=== PATIENT | male | born 1965 | race Caucasian/White ===

== ENCOUNTER 2020-09-22 07:44 | Observation (INO) | payer OTHER, SELFPAY ==
[2020-09-22] VITALS (37 sets, daily range): BP systolic 115–158; BP diastolic 69–93; PULSE 65–77; RESP 13–24; TEMP 35.6–36.9; O2SAT 94–99
--- NOTE | 2020-09-22 07:45 | RT.EKG_ITS ---
APPROVED REPORT Exam: Resting ECG Reason for Exam: dizzy Patient Location: E HR:68 bpm ECG Measurements Heart Rate 68 AXIS [place] 175 P 50 QRSd 101 QRS 27 QT 363 T 22 QTc 385 Conclusion Sinus rhythm...normal P axis, V-rate 60- 99
--- NOTE | 2020-09-22 08:15 | DI.CT_ITS ---
Exam(s) CT CHEST PE CTA EXAM: CT CHEST PE CTA CLINICAL HISTORY: sob, diaphoresis, cp, h/o dvt. TECHNIQUE: Imaging Protocol: Axial CT angiography was performed with multi-slice acquisition and mu lti-planar and/or 3D reconstructions. CONTRAST MATERIAL: Intravenous: Omnipaque 350 Contrast volume:100 mL COMPARISON: No exams were available for comparison FINDINGS: Tracheobronchial tree: Patent where visualized. Pulmonary parenchyma: No focal consolidation. There is a calcified granuloma in the superior segment of the right lower lobe. There is a 0.8 cm soft tissue nodule in the superior segment of the right upper lobe. (Series 6, image 196). There does appear to be a single calcification centrally. There is a 0.5 cm noncalcified pulmonary nodule in the superior segment of the right lower lobe. (Series 6, image 196). There is a 0.7 cm noncalcified pulmonary nodule in the right lower lobe. (Series 6, image 260). It lies adjacent to the fissure. No other pulmonary nodules are appreciated. No laura ectural distortion. Pulmonary Arteries: No evidence of filling defect to suggest pulmonary emboli. Mediastinum and Elzbieta: No dominant adenopathy or fluid collection. There is a small hiatal hernia. Th ere is a 2.1 x 1.6 right hilar lymph node. Visualized thyroid gland: Unremarkable. Pleura: No effusion or pneumothorax. Heart: The heart is not dilated. Mild coronary artery calcification. No pericardial effusion. Aorta: Thoracic aorta non-dilated. Mild coronary artery calcification. No evidence of an aortic diss ection. Upper abdomen: Diffuse fatty infiltration of the liver. Soft tissues: Unremarkable. Bones: Degenerative changes in the thoracic spine. IMPRESSION: 1. No evidence of pulmonary embolism, thoracic aortic dissection or aneurysm. 2. Pulmonary nodules and mildly enlarged right hilar lymph node. Metastatic disease cannot be exclud ed given the patient's history of melanoma. However, nonneoplastic lesions or infectious or inflamma tory processes cannot be excluded. PET-CT scan may be considered for further evaluation. 3. Results of this exam have been verbally communicated with provider. RADIATION DOSE DELIVERED: 635.58mGy.cm Total DLP DATA REPOSITORY: All CT scans at this facility are submitted to the National Radiology Data Registry (NRDR) Dose Index Registry (DIR) with the [employer] (A[employer]). RADIATION OPTIMIZATION: All CT scans at this facility use at least one of these dose optimization te chniques: automated exposure control; mA and/or kV adjustment per patient size (includes targeted exa ms where dose is matched to clinical indication); or iterative reconstruction.
[2020-09-22 08:19] LABS: Abs Immature Grans 0.04 10^3/uL (0.0-0.06); Absolute Basophil Count 0.04 10^3/uL (0.0-0.2); Absolute Monocyte Count 0.77 10^3/uL (0.1-0.8); Absolute Neutrophil Count 4.31 10^3/uL (1.2-6.7); Basophils % 0.5; Eosinophils % 3.7; HCT 46.4 % (40.0-50.0); Immature Grans % 0.5; Lymphocytes % 32.3; MCH 28.7 pg (27.0-33.0); MCHC 32.3 % (32.0-36.0); MCV 88.9 fL (80-95); MPV 9.9 fL (8.0-11.0); Monocytes % 9.6; Neutrophils % 53.4; Nucleated RBC 0 %; Platelet Count 251 10^3/uL (130-400); RBC 5.22 10^6/uL (4.36-5.78); RDW 12.1 % (11.8-14.1); RDW-SD 39.8 fL; WBC 8.06 10^3/uL (4.4-10.8)
--- NOTE | 2020-09-22 08:30 | ED.GENADUL_ITS ---
Discharge Plan Disposition Patient Disposition: [facility] INPATIENT Condition: Serious Discharge Details Chief Complaint: Chest Pain Clinical Impression: Dizziness, Palpitations, Chest pain Primary Care Provider: Lorelei,Local ED Provider: Khoi Bills Home Meds and New Rx's Prescriptions: No Action metformin 500 mg Tablet 500 mg PO BID RF: 0 lisinopril 20 mg Tablet 20 mg PO DAILY RF: 0 acetaminophen 500 mg Tablet 500 mg PO DAILY PRNRF: 0 methocarbamol 750 mg Tablet 750 mg PO BID RF: 0 aspirin 81 mg Tablet,Chewable 81 mg PO DAILY RF: 0 hydrochlorothiazide 25 mg Tablet 25 mg PO DAILY RF: 0 sulindac 200 mg Tablet 200 mg PO DAILY RF: 0 docosahexaenoic acid-epa Capsule 1 cap PO DAILY RF: 0 rosuvastatin 20 mg Tablet 20 mg PO HS RF: 0 Medical Decision Making 839?- 55-year-old male with history of A. fib status post cardiac ablation remotely, also with chronic lymphedema right lower extremity and venous thrombus right lower extremity that was initially treated with anticoagulation, no longer anticoagulated, here with palpitations with associated chest discomfort, shortness of breath, diaphoresis and dizziness since waking this morning. Patient is hemodynamically stable. Saturating well in no respiratory distress. EKG was reviewed and interpreted by me: Sinus rhythm 68 bpm, no STEMI, normal axis, nondiagnostic. I reviewed and interpreted cardiac catheterization technician while in the room with the patient and patient is persistently in a normal sinus rhythm with heart rate in the 70s. Given recent history of venous thrombus, consider acute life-threatening pulmonary embolism. Plan to obtain CT of the chest. Patient does have lower extremity edema and dyspnea on exertion. Consider congestive heart failure. I will check a BNP. Consider ACS. --CT interpreted by radiology as no pulmonary embolism, no dissection, incidentally noted nodules and hilar lymphadenopathy --this will require outpatient follow-up. Labs reviewed and nondiagnostic. Initial troponin negative. History from this morning is concerning for potential arrhythmia. Plan to admit for rule out ACS and cardiac monitoring. I called and spoke with the hospitalist, Dr. Wolf, discussed ED presentation and course. He will admit the patient. Bridging orders placed as requested. Lab Data Lab results reviewed: Yes I reviewed the patient's lab results. Labs: Laboratory Tests Range/Units 09/22/20 09/22/20 09/22/20 08:01 08:01 08:01 WBC (4.4-10.8) 10^3/uL 8.06 RBC (4.36-5.78) 10^6/uL 5.22 Hgb (13.5-17.5) g/dL 15.0 Hct (40.0-50.0) % 46.4 MCV (80-95) fL 88.9 MCH (27.0-33.0) pg 28.7 MCHC (32.0-36.0) % 32.3 RDW (11.8-14.1) % 12.1 Plt Count (130-400) 10^3/uL 251 MPV (8.0-11.0) fL 9.9 Immature Gran % 0.5 Neutrophils % 53.4 Lymphocytes % 32.3 Monocytes % 9.6 Eosinophils % 3.7 Basophils % 0.5 Nucleated RBC % % 0 Absolute Neutrophils (1.2-6.7) 10^3/uL 4.31 Absolute Lymphocytes (1.2-3.4) 10^3/uL 2.60 Absolute Monocytes (0.1-0.8) 10^3/uL 0.77 Absolute Eosinophils (0.0-0.7) 10^3/uL 0.30 Absolute Basophils (0.0-0.2) 10^3/uL 0.04 D-Dimer (<500) ng/mlFEU 332 Sodium (136-145) mmol/L 139 Potassium (3.5-5.1) mmol/L 3.9 Chloride (98-107) mmol/L 102 Carbon Dioxide (21.0-32.0) mmol/L 29.2 Anion Gap (3-11) mmol/L 7.8 BUN (7-18) mg/dL 21 H Creatinine (0.70-1.30) mg/dL 1.0 Estimated GFR/1.73 m2 (mL/min/1.73m2) >= 60.00 Glucose (74-106) mg/dL 114 H Calcium (8.5-10.1) mg/dL 9.0 Total Bilirubin (0.2-1.0) mg/dL 0.4 AST (15-37) U/L 28 ALT (16-63) U/L 60 Alkaline Phosphatase (46-116) U/L 60 Troponin I (<0.06) ng/mL < 0.05 NT-Pro-B Natriuret Pep (<300) pg/mL Total Protein (6.4-8.2) g/dL 7.8 Albumin (3.4-5.0) g/dL 4.3 TSH (0.36-3.74) uIU/mL Range/Units 09/22/20 08:01 WBC (4.4-10.8) 10^3/uL RBC (4.36-5.78) 10^6/uL Hgb (13.5-17.5) g/dL Hct (40.0-50.0) % MCV (80-95) fL MCH (27.0-33.0) pg MCHC (32.0-36.0) % RDW (11.8-14.1) % Plt Count (130-400) 10^3/uL MPV (8.0-11.0) fL Immature Gran % Neutrophils % Lymphocytes % Monocytes % Eosinophils % Basophils % Nucleated RBC % % Absolute Neutrophils (1.2-6.7) 10^3/uL Absolute Lymphocytes (1.2-3.4) 10^3/uL Absolute Monocytes (0.1-0.8) 10^3/uL Absolute Eosinophils (0.0-0.7) 10^3/uL Absolute Basophils (0.0-0.2) 10^3/uL D-Dimer (<500) ng/mlFEU Sodium (136-145) mmol/L Potassium (3.5-5.1) mmol/L Chloride (98-107) mmol/L Carbon Dioxide (21.0-32.0) mmol/L Anion Gap (3-11) mmol/L BUN (7-18) mg/dL Creatinine (0.70-1.30) mg/dL Estimated GFR/1.73 m2 (mL/min/1.73m2) Glucose (74-106) mg/dL Calcium (8.5-10.1) mg/dL Total Bilirubin (0.2-1.0) mg/dL AST (15-37) U/L ALT (16-63) U/L Alkaline Phosphatase (46-116) U/L Troponin I (<0.06) ng/mL NT-Pro-B Natriuret Pep (<300) pg/mL 25 Total Protein (6.4-8.2) g/dL Albumin (3.4-5.0) g/dL TSH (0.36-3.74) uIU/mL 3.44 HPI General Mode of arrival: ambulatory . Date/Time Provider Initiated Documentation: 09/22/20 08:09 . Limitations to Documentation: no limitations . Information obtained by: patient . HPI Narrative: 55-year-old gentleman with history of A. fib status post ablation 5 to 7 years ago, melanoma right lower extremity now status post removal and lymph node dissection right groin, chronic lymphedema right lower extremity, venous thrombus right lower extremity, no longer on anticoagulation, here with chief complaint of heart racing. Patient notes he woke up this morning around 430 feeling palpitations. Symptoms were initially moderate. They persisted through the morning and were severe while at work. He had associated shortness of breath, mild chest discomfort, diaphoresis and felt dizzy. He continues to have some mild sensation of palpitation and shortness of breath at this time. He has no chest pain at this time. Patient does note chronic lymphedema right lower extremity status post lymph node dissection as part of his treatment for metastatic melanoma and did subsequently have superficial thrombus and questionable DVT this past winter. Patient does note that over the past month he has had increased weight gain and has had some dyspnea on exertion. Related Data Home Medications Medication Instructions Recorded Confirmed acetaminophen 500 mg PO DAILY PRN 09/22/20 09/22/20 aspirin 81 mg PO DAILY 09/22/20 09/22/20 docosahexaenoic acid-epa 1 cap PO DAILY 09/22/20 09/22/20 hydrochlorothiazide 25 mg PO DAILY 09/22/20 09/22/20 lisinopril 20 mg PO DAILY 09/22/20 09/22/20 metformin 500 mg PO BID 09/22/20 09/22/20 methocarbamol 750 mg PO BID 09/22/20 09/22/20 rosuvastatin 20 mg PO HS 09/22/20 09/22/20 sulindac 200 mg PO DAILY 09/22/20 09/22/20 Allergies Allergy/AdvReac Type Severity Reaction Status Date / Time erythromycin base AdvReac Nausea Unverified 09/22/20 07:50 gabapentin AdvReac Other (See Unverified 09/22/20 07:50 Comment) simvastatin AdvReac Hives Unverified 09/22/20 07:50 General Stated Complaint: Chest Pain DAYNE: 2 Review of Systems All systems reviewed & are unremarkable except as noted in HPI and below Constitutional Constitutional: Denies fever(s) Cardiovascular Cardiovascular: Reports as per HPI, Reports chest pain, Reports leg edema (Chronic unchanged right lower extremity) and Reports dyspnea Respiratory Respiratory: Reports as per HPI and Reports dyspnea PFSH Medical History (Updated 09/22/20 @ 10:57 by Khoi Bills MD) Atrial fibrillation Melanoma Surgical History (Updated 09/22/20 @ 08:37 by Khoi Bills MD) H/O cardiac radiofrequency ablation Social History Smoking/Tobacco Use Status: Never Smoking risk assessment performed?: Yes Alcohol Intake: never Drug use: Never Substance use type: does not use Do you feel safe at home: Yes Do you feel safe in your relationship?: Yes Exam Const General: cooperative and no acute distress HENMT Head: normocephalic and atraumatic Mouth: moist mucous membranes Eyes Conjunctivae: normal conjunctivae Sclera: normal sclerae EOM: EOM intact bilaterally Neck Neck: trachea midline Resp Auscultation: clear to auscultation bilaterally, no rales, no rhonchi and no wheezes Cardio Jugular venous pressure: no JVD Rate: regular rate and not tachycardic Rhythm: regular rhythm GI Palpation: soft, not firm, no guarding, no masses, not rigid and nontender Skin General skin exam: no rashes or lesions noted Neuro General: patient alert, patient awake, patient oriented x3 and tone normal Extrem General: no calf tenderness and edema Laterality: right (Swelling of leg) Psych Appearance: grossly normal Mental Status: mental status grossly normal Speech and Movement: speech and movement normal Course Vital Signs Vital signs: Vital Signs Temperature 36.4 C L 09/22/20 07:47 Pulse 70 09/22/20 07:47 Respiratory Rate 20 09/22/20 07:47 Blood Pressure 158/93 H 09/22/20 07:47 Pulse Oximetry 98 09/22/20 07:47 Temperature 36.4 C L 09/22/20 07:47 Temperature Source Skin 09/22/20 07:47 Pulse 70 09/22/20 08:15 Pulse 70 09/22/20 08:20 Respiratory Rate 17 09/22/20 08:20 Respiratory Effort Non-Labored 09/22/20 07:51 Respiratory Depth Normal 09/22/20 07:51 Respiratory Pattern Normal 09/22/20 07:51 Blood Pressure 155/88 H 09/22/20 08:15 Blood Pressure Mean 104 09/22/20 08:15 Blood Pressure Position Sitting 09/22/20 07:47 Pulse Oximetry 98 09/22/20 08:20 Oxygen Delivery Method Room Air 09/22/20 07:47 Oxygen Flow Rate 0 09/22/20 07:47 Pain Level 5 09/22/20 07:51 Lab/Test Results Lab/Test Results: Laboratory Tests Range/Units 09/22/20 08:01 WBC (4.4-10.8) 10^3/uL 8.06 RBC (4.36-5.78) 10^6/uL 5.22 Hgb (13.5-17.5) g/dL 15.0 Hct (40.0-50.0) % 46.4 MCV (80-95) fL 88.9 MCH (27.0-33.0) pg 28.7 MCHC (32.0-36.0) % 32.3 RDW (11.8-14.1) % 12.1 Plt Count (130-400) 10^3/uL 251 MPV (8.0-11.0) fL 9.9 Immature Gran % 0.5 Neutrophils % 53.4 Lymphocytes % 32.3 Monocytes % 9.6 Eosinophils % 3.7 Basophils % 0.5 Nucleated RBC % % 0 Absolute Neutrophils (1.2-6.7) 10^3/uL 4.31 Absolute Lymphocytes (1.2-3.4) 10^3/uL 2.60 Absolute Monocytes (0.1-0.8) 10^3/uL 0.77 Absolute Eosinophils (0.0-0.7) 10^3/uL 0.30 Absolute Basophils (0.0-0.2) 10^3/uL 0.04
[2020-09-22 08:35] LABS: ALT 60 U/L (16-63); AST 28 U/L (15-37); Albumin 4.3 g/dL (3.4-5.0); Alkaline Phosphatase 60 U/L (46-116); Anion Gap 7.8 mmol/L (3-11); BUN 21 mg/dL (7-18); Bilirubin, Total 0.4 mg/dL (0.2-1.0); CO2 29.2 mmol/L (21.0-32.0); Chloride 102 mmol/L (98-107); Glucose 114 mg/dL (74-106); Potassium 3.9 mmol/L (3.5-5.1); Sodium 139 mmol/L (136-145); Total Protein 7.8 g/dL (6.4-8.2)
[2020-09-22 08:36] LABS: Troponin I < 0.05 ng/mL (<0.06)
[2020-09-22] MEDS: Omnipaque 350 MG/ML 100 ML BTL IV (08:45)
[2020-09-22] MEDS: Normal Saline - Diluent 50 ML VIAL IV (08:46)
[2020-09-22 08:52] LABS: D-Dimer 332 ng/mlFEU (<500)
[2020-09-22 08:55] LABS: NT-proBNP 25 pg/mL (<300); TSH (W/Ref FT4) 3.44 uIU/mL (0.36-3.74)
--- NOTE | 2020-09-22 10:51 | W.PM.HP.N ---
Date of service: 09/22/20 Time of Service: 10:51 Assessment and Plan Assessment and plan (1) Chest pain: Status: Acute Assessment and plan: referred to observation. trop x2 sets negative, will continue to trend continue asa anticipate discharge tomorrow with no services. outpatient cardiac evaluation. (2) Atrial fibrillation: Status: Inactive Assessment and plan: s/p ablation. in NSR. on telemetry (3) Diabetes mellitus type 2, controlled: Status: Acute Assessment and plan: reports last hemoglobin A1C was 6.2 which was up from 5.7 hold metformin 48 hours d/t contrast diabetic diet with sliding scale ac/hs History of Present Illness History of Present Illness Chief Complaint: chest pain Narrative: This is a 55-year-old gentleman with history of A. fib status post ablation 5 to 7 years ago, melanoma right lower extremity now status post removal and lymph node dissection right groin, chronic lymphedema right lower extremity, venous thrombus right lower extremity, no longer on anticoagulation, presented to the ED with chief complaint of heart racing. Patient notes he woke up this morning around 430 feeling palpitations. Review of Systems All systems reviewed & are unremarkable except as noted in HPI and below Cardiovascular Cardiovascular: Reports chest pain, Reports diaphoresis and Reports dyspnea Respiratory Respiratory: Reports dyspnea Gastrointestinal Gastrointestinal: Reports nausea PFSH Medical History (Updated 09/22/20 @ 16:57 by Elma Lundy NP) Atrial fibrillation Melanoma Surgical History (Updated 09/22/20 @ 08:37 by Khoi Bills MD) H/O cardiac radiofrequency ablation Social History Smoking/Tobacco Use Status: Never Smoking risk assessment performed?: Yes Alcohol Intake: never Drug use: Never Substance use type: does not use Do you feel safe at home: Yes Do you feel safe in your relationship?: Yes Meds Allergies and Home Medications Allergies Allergy/AdvReac Type Severity Reaction Status Date / Time erythromycin base AdvReac Nausea Unverified 09/22/20 07:50 gabapentin AdvReac Other (See Unverified 09/22/20 07:50 Comment) simvastatin AdvReac Hives Unverified 09/22/20 07:50 Home Medications Medication Instructions Recorded Confirmed Type acetaminophen 500 mg PO DAILY PRN 09/22/20 09/22/20 History aspirin 81 mg PO DAILY 09/22/20 09/22/20 History docosahexaenoic acid-epa 1 cap PO DAILY 09/22/20 09/22/20 History hydrochlorothiazide 25 mg PO DAILY 09/22/20 09/22/20 History lisinopril 20 mg PO DAILY 09/22/20 09/22/20 History metformin 500 mg PO BID 09/22/20 09/22/20 History methocarbamol 750 mg PO BID 09/22/20 09/22/20 History rosuvastatin 20 mg PO HS 09/22/20 09/22/20 History sulindac 200 mg PO DAILY 09/22/20 09/22/20 History Exam Const General: cooperative and no acute distress HENMT Head: normocephalic and atraumatic Mouth: moist mucous membranes Eyes Conjunctivae: normal conjunctivae Sclera: normal sclerae EOM: EOM intact bilaterally Neck Neck: trachea midline Resp Auscultation: clear to auscultation bilaterally, no rales, no rhonchi and no wheezes Cardio Rate: regular rate Rhythm: regular rhythm GI Palpation: soft, not firm, no guarding, no masses, not rigid and nontender Skin General skin exam: no rashes or lesions noted Neuro General: patient alert, patient awake, patient oriented x3 and tone normal Extrem General: no calf tenderness and edema Laterality: right (Swelling of leg) Psych Appearance: grossly normal Mental Status: mental status grossly normal Speech and Movement: speech and movement normal Results Labs Result diagrams: 09/22/20 08:01 09/22/20 08:01 Labs: Laboratory Results - last 24 hr 09/22/20 09/22/20 09/22/20 08:01 08:01 08:01 WBC 8.06 RBC 5.22 Hgb 15.0 Hct 46.4 MCV 88.9 MCH 28.7 MCHC 32.3 RDW 12.1 Plt Count 251 MPV 9.9 Immature Gran % 0.5 Neutrophils % 53.4 Lymphocytes % 32.3 Monocytes % 9.6 Eosinophils % 3.7 Basophils % 0.5 Nucleated RBC % 0 Absolute Neutrophils 4.31 Absolute Lymphocytes 2.60 Absolute Monocytes 0.77 Absolute Eosinophils 0.30 Absolute Basophils 0.04 D-Dimer 332 Sodium 139 Potassium 3.9 Chloride 102 Carbon Dioxide 29.2 Anion Gap 7.8 BUN 21 H Creatinine 1.0 Estimated GFR/1.73 m2 >= 60.00 Glucose 114 H Calcium 9.0 Total Bilirubin 0.4 AST 28 ALT 60 Alkaline Phosphatase 60 Troponin I < 0.05 NT-Pro-B Natriuret Pep Total Protein 7.8 Albumin 4.3 TSH 09/22/20 08:01 WBC RBC Hgb Hct MCV MCH MCHC RDW Plt Count MPV Immature Gran % Neutrophils % Lymphocytes % Monocytes % Eosinophils % Basophils % Nucleated RBC % Absolute Neutrophils Absolute Lymphocytes Absolute Monocytes Absolute Eosinophils Absolute Basophils D-Dimer Sodium Potassium Chloride Carbon Dioxide Anion Gap BUN Creatinine Estimated GFR/1.73 m2 Glucose Calcium Total Bilirubin AST ALT Alkaline Phosphatase Troponin I NT-Pro-B Natriuret Pep 25 Total Protein Albumin TSH 3.44 Last Vital Signs Temp 36.4 C L 09/22/20 07:47 Pulse 67 09/22/20 10:01 Resp 23 09/22/20 10:30 BP 146/79 H 09/22/20 10:01 Pulse Ox 96 09/22/20 10:30
[2020-09-22 11:00] LABS: Source Nasal/Nares
[2020-09-22 13:39] LABS: COVID-19 PCR Negative (Negative)
[2020-09-22 14:28] LABS: Troponin I < 0.05 ng/mL (<0.06)
[2020-09-22 17:26] LABS: Troponin I < 0.05 ng/mL (<0.06)
[2020-09-22] MEDS: Insulin Aspart 300 UNITS/3 ML PEN SC (18:14)
[2020-09-22 18:41] LABS: Hemoglobin A1C 6.2 % (<5.7)
[2020-09-22] MEDS: Methocarbamol 750 MG TAB PO (19:54)
[2020-09-22] MEDS: ROSUVASTATIN 20 MG TAB PO (19:54)
[2020-09-23 00:45] VITALS: PULSE 62
[2020-09-23 01:12] VITALS: BP 109/76; PULSE 70; RESP 17; TEMP 36.3; O2SAT 95
[2020-09-23 03:05] VITALS: BP 140/68; PULSE 67; RESP 16; TEMP 36.4; O2SAT 97
[2020-09-23 07:00] VITALS: PULSE 77
[2020-09-23 07:04] VITALS: BP 130/67; PULSE 63; RESP 16; TEMP 36.6; O2SAT 94
[2020-09-23 07:20] LABS: Abs Immature Grans 0.04 10^3/uL (0.0-0.06); Absolute Basophil Count 0.06 10^3/uL (0.0-0.2); Absolute Eosinophil Count 0.27 10^3/uL (0.0-0.7); Absolute Monocyte Count 0.78 10^3/uL (0.1-0.8); Absolute Neutrophil Count 4.46 10^3/uL (1.2-6.7); Basophils % 0.8; Eosinophils % 3.5; HGB 15.2 g/dL (13.5-17.5); Immature Grans % 0.5; Lymphocytes % 28.2; MCH 29.1 pg (27.0-33.0); MPV 9.8 fL (8.0-11.0); Nucleated RBC 0 %; Platelet Count 233 10^3/uL (130-400); RBC 5.23 10^6/uL (4.36-5.78); RDW 12.2 % (11.8-14.1); RDW-SD 39.5 fL; WBC 7.81 10^3/uL (4.4-10.8)
[2020-09-23 07:38] LABS: Anion Gap 7.2 mmol/L (3-11); BUN 17 mg/dL (7-18); CO2 28.8 mmol/L (21.0-32.0); Calcium 9.1 mg/dL (8.5-10.1); Chloride 101 mmol/L (98-107); Glucose 129 mg/dL (74-106); Potassium 4.2 mmol/L (3.5-5.1); Sodium 137 mmol/L (136-145)
[2020-09-23 07:39] LABS: Troponin I < 0.05 ng/mL (<0.06)
[2020-09-23] MEDS: Acetaminophen 500 MG TAB PO (08:33)
[2020-09-23] MEDS: Lisinopril 20 MG TAB PO (08:34)
[2020-09-23] MEDS: hydroCHLOROthiazide 25 MG TAB PO (08:34)
[2020-09-23] MEDS: Methocarbamol 750 MG TAB PO (08:34)
[2020-09-23] MEDS: Aspirin 81 MG CHEW PO (08:34)
[2020-09-23 11:45] VITALS: BP 143/90; PULSE 64; RESP 18; TEMP 36.1; O2SAT 96
--- NOTE | 2020-09-23 11:49 | DSE_ITS ---
Date of service: 09/23/20 Time of Service: 11:53 DS: Diagnosis Discharge Diagnosis (1) Chest pain: Status: Acute (2) Atrial fibrillation: Status: Inactive (3) Diabetes mellitus type 2, controlled: Status: Acute Discharge Plan Disposition Patient Disposition: HOME Condition: Stable Discharge Details Reason For Visit: Chest pain Admit Date/Time: 09/22/20 10:09 Admit Provider: Javon Wolf Attending Provider: Javon Wolf [facility] Hospital Course: This is a 55-year-old male with history of A. fib status post ablation 5 to 7 years ago, melanoma right lower extremity now status post removal and lymph node dissection right groin, chronic lymphedema right lower extremity, venous thrombus right lower extremity, no longer on anticoagulation, who presented to the ED with chief complaint of heart racing and chest pressure. He states he developed the symptoms and they seemed to worsen over several hours so presented here. His work up in the ED showed no acute changes on EKG and a negative troponin. He was in sinus rhythm, his symptoms resolved. His CT scan was negative for PE. He was referred to observation and remained hemodynamically stable, troponins remained negative x3 with the last set this morning, 24 hours post onset of symptoms. He remained in NSR on telemetry. On CT scan that was ordered to r/o PE we found pulmonary nodules and mildly enlarged right hilar lymph node. Metastatic disease cannot be excluded given the patient's history of melanoma. However, nonneoplastic lesions or infectious or inflammatory processes cannot be excluded. PET-CT scan may be considered for further evaluation. He should discuss with his oncologist to arrange follow up. He is being discharged to home with no services. he was advised to resume his usual medication. He will follow up outpatient with cardiology, oncology and pcp. discussed with DR Edmonds Home Meds and New Rx's Prescriptions: Continued metformin 500 mg Tablet 500 mg PO BID RF: 0 lisinopril 20 mg Tablet 20 mg PO DAILY RF: 0 acetaminophen 500 mg Tablet 500 mg PO DAILY PRNRF: 0 methocarbamol 750 mg Tablet 750 mg PO BID RF: 0 aspirin 81 mg Tablet,Chewable 81 mg PO DAILY RF: 0 hydrochlorothiazide 25 mg Tablet 25 mg PO DAILY RF: 0 sulindac 200 mg Tablet 200 mg PO DAILY RF: 0 docosahexaenoic acid-epa Capsule 1 cap PO DAILY RF: 0 rosuvastatin 20 mg Tablet 20 mg PO HS RF: 0 Discharge Instructions Instructions: Chest Pain (DC) Additional Instructions: Your cardiac enzymes (troponin) have remained negative but you should have further outpatient cardiology evaluation, likely echocardiogram and stress test to further evaluate your symptoms (shortness of breath with activity and recent chest pain). Please call your news operations manager first thing Friday for arrange a follow up visit. Call 911 or return to the closest emergency department for new or worsening symptoms. Also, on CAT scan of your chest showed pulmonary nodules and mildly enlarged right hilar lymph node, a PET-CT scan may be considered for further evaluation. You should follow up with your oncologist for further evaluation, call Friday for appointment. Stand Alone Forms: Nursing Discharge Form Referrals: No,Local [Primary Care Provider] - (needs appointments with primary care provider, news operations manager and oncologist. Please call Friday to arranage these appointments as soon as possible. ) Activity:: Activity as Tolerated Equipment/Supplies:: No Equipment Needed Diet:: Carb Counting Discharge Orders Discharge Orders: Discharge Order (Routine); Ordered 09/23/20 Ordered By: Elma Lundy DS: Summary Time Spent with Patient providing and/or coordinating discharge services: Less than 30 minutes Status at Discharge Functional status at discharge: independent ambulation Overall status at discharge: patient is back to baseline Mental Status: mental status grossly normal Speech and Movement: speech and movement normal Mood: congruent mood Affect: normal affect Exam Const General: cooperative and no acute distress HENMT Head: normocephalic and atraumatic Mouth: moist mucous membranes Eyes Conjunctivae: normal conjunctivae Sclera: normal sclerae EOM: EOM intact bilaterally Neck Neck: trachea midline Resp Auscultation: clear to auscultation bilaterally, no rales, no rhonchi and no wheezes Cardio Rate: regular rate Rhythm: regular rhythm GI Palpation: soft, not firm, no guarding, no masses, not rigid and nontender Skin General skin exam: no rashes or lesions noted Neuro General: patient alert, patient awake, patient oriented x3 and tone normal Extrem General: no calf tenderness and edema Laterality: right (Swelling of leg) Psych Appearance: grossly normal Mental Status: mental status grossly normal Speech and Movement: speech and movement normal Mood: congruent mood Affect: normal affect DS: Data Vitals/I&O Vitals and I&O: Vital Signs Temperature 36.6 C 09/23/20 07:04 Temperature Source Tympanic 09/23/20 07:04 Pulse 63 09/23/20 07:04 Pulse Rhythm Regular 09/23/20 01:29 Pulse 70 09/22/20 10:50 Respiratory Rate 16 09/23/20 07:04 Respiratory Effort Non-Labored 09/23/20 01:29 Respiratory Depth Normal 09/23/20 01:29 Respiratory Pattern Normal 09/23/20 01:29 Blood Pressure 130/67 09/23/20 07:04 Blood Pressure Mean 94 09/22/20 10:01 Blood Pressure Position Sitting 09/22/20 07:47 Pulse Oximetry 94 09/23/20 07:04 Oxygen Delivery Method Room Air 09/23/20 07:04 Oxygen Flow Rate 0 09/23/20 07:04 Pain Level 8 09/23/20 07:04 Intake & Output 09/22/20 09/22/20 09/23/20 11:59 23:59 11:59 Intake Total 290 / 290 Balance 290 / 290 Weight 117.934 kg Intake: IV Oral 280 / 280 Other: Urine Color Yellow Urine Appearance Clear Voiding Methods Toilet Data Completed and Pending Labs on day of discharge: Labs from last 24 hours 09/23/20 09/23/20 09/22/20 07:00 07:00 16:55 WBC 7.81 RBC 5.23 Hgb 15.2 Hct 46.0 MCV 88.0 MCH 29.1 MCHC 33.0 RDW 12.2 Plt Count 233 MPV 9.8 Immature Gran % 0.5 Neutrophils % 57.0 Lymphocytes % 28.2 Monocytes % 10.0 Eosinophils % 3.5 Basophils % 0.8 Nucleated RBC % 0 Absolute Neutrophils 4.46 Absolute Lymphocytes 2.20 Absolute Monocytes 0.78 Absolute Eosinophils 0.27 Absolute Basophils 0.06 Sodium 137 Potassium 4.2 Chloride 101 Carbon Dioxide 28.8 Anion Gap 7.2 BUN 17 Creatinine 1.0 Estimated GFR/1.73 m2 >= 60.00 Glucose 129 H Hemoglobin A1c Calcium 9.1 Troponin I < 0.05 < 0.05 SARS-CoV-2 (PCR) 08/06/21 08/06/21 08/06/21 14:02 10:36 08:01 WBC RBC Hgb Hct MCV MCH MCHC RDW Plt Count MPV Immature Gran % Neutrophils % Lymphocytes % Monocytes % Eosinophils % Basophils % Nucleated RBC % Absolute Neutrophils Absolute Lymphocytes Absolute Monocytes Absolute Eosinophils Absolute Basophils Sodium Potassium Chloride Carbon Dioxide Anion Gap BUN Creatinine Estimated GFR/1.73 m2 Glucose Hemoglobin A1c 6.2 H Calcium Troponin I < 0.05 SARS-CoV-2 (PCR) Negative [facility] Medical History (Updated 09/22/20 @ 16:57 by Elma Lundy NP) Atrial fibrillation Melanoma Surgical History (Updated 09/22/20 @ 08:37 by Khoi Bills MD) H/O cardiac radiofrequency ablation Social History Smoking/Tobacco Use Status: Never Smoking risk assessment performed?: Yes Alcohol Intake: never Drug use: Never Substance use type: does not use Do you feel safe at home: Yes Do you feel safe in your relationship?: Yes
--- NOTE | 2020-10-24 12:24 | W.CARDEVENT ---
Date of service: 10/24/20 Time of Service: 12:25 Cardiac Event Recorder Referring Provider:: Anurag Begum Indications:: Paroxysmal atrial fibrillation Cardiac Event Note: This is a 30-day event monitor, reportedly ordered for paroxysmal atrial fibrillation Rhythm throughout was sinus. Average heart rate overall was 78 bpm. Minimum was 53, maximum 154 There were occasional ventricular ectopic beats. There was no ventricular tachycardia. There was no atrial fibrillation, no high-grade AV block, no pauses greater than 3 seconds Patient symptoms corresponded to sinus rhythm, sinus tachycardia and occasionally to sporadic PVCs
== END 2020-09-23 14:27 | disposition home or self-care (01) ==
LOC: ER 10:57 → MS 11:26
PROVIDERS: Nurse Practitioner Acute Care; Admitting Provider Family Medicine; Emergency Provider Student in an Organized Health Care Education/Training Program; Visit Provider Family Medicine
DX: I48.91 Unspecified atrial fibrillation (principal); R07.89 Other chest pain; I89.0 Lymphedema, not elsewhere classified; R06.00 Dyspnea, unspecified; R91.8 Other nonspecific abnormal finding of lung field; R59.0 Localized enlarged lymph nodes; E11.9 Type 2 diabetes mellitus without complications; Z86.718 Personal history of other venous thrombosis and embolism; Z85.820 Personal history of malignant melanoma of skin
CPT/HCPCS: 36415; 71275; 80048; 80053; 87635; 93005; 93270; 99285; 83036; 83880; 84443; 84484; 85025; 85379; 93010; 99217; 99220; G0378; J3490

== ENCOUNTER → 2023-03-10 19:23 | Outpatient (CLI) | payer OTHER, SELFPAY ==
--- NOTE | 2023-03-10 | DI.RAD_ITS ---
Exam(s) XR LUMBAR SPINE COMPLETE EXAM: XR LUMBAR SPINE COMPLETE CLINICAL HISTORY: LOW BACK PAIN M54.50 FALL, STRIKING L SPINE ON STAIR. TECHNIQUE: 2D digital imaging was performed. Five views. COMPARISON: No exams were available for comparison FINDINGS: BONES: No fracture or destructive lesion. Vertebral body heights are maintained. Small endplate oste ophytes. Facet degenerative changes greatest at L4-5 and L5-S1. DISKS: Severe narrowing of the L5-S1 disc space. The remaining intervertebral disc spaces are mainta ined. ALIGNMENT: Slight degenerative spondylolisthesis at L3-4 through L5-S1. SOFT TISSUE: Normal. IMPRESSION: Degenerative changes of the lower lumbar spine, greatest at L5-S1. No acute abnormality. DATA REPOSITORY: RADIATION DOSE DELIVERED:
--- NOTE | 2023-03-10 | DI.RAD_ITS ---
Exam(s) XR WRIST RT COMPL NAVICULAR EXAM: XR WRIST RT COMPL NAVICULAR CLINICAL HISTORY: PAIN IN RT WRIST M25.531 FOOSH BEHIND BACK, PAIN PRESENTDISTAL TO ULNER. TECHNIQUE: 2D digital imaging was performed. Three views. COMPARISON: No exams were available for comparison FINDINGS: BONES: Fracture lines noted at the articular aspect of the distal radius with mild separation toward the ulnar aspect. The distal ulna and carpal bones appear intact. No bony destructive lesion is see n. JOINTS: The carpal bones are normally aligned. SOFT TISSUE: Swelling IMPRESSION: Nondisplaced intra-articular fracture of the distal radius. DATA REPOSITORY: RADIATION DOSE DELIVERED:
== END ==
PROVIDERS: Visit Provider Nurse Practitioner Family
DX: S52.571D Other intraarticular fracture of lower end of right radius, subsequent encounter for closed fracture with routine healing (principal); X58.XXXD Exposure to other specified factors, subsequent encounter
CPT/HCPCS: 72110; 73110